=== PATIENT | male | born 1990 | race Two or more races ===

== ENCOUNTER 2021-07-21 01:15 | Emergency (ER) | payer OTHER ==
[~2021-07-21] VITALS: Ht 175.3 cm; Wt 90.7 kg
[2021-07-21 01:59] VITALS: BP 154/82
== END 2021-07-21 02:14 | disposition left against medical advice (07) ==
LOC: EDBD 01:15 → ER 01:16
DX: S00.91XA Abrasion of unspecified part of head, initial encounter (principal); R51.9 Headache, unspecified; Z53.21 Procedure and treatment not carried out due to patient leaving prior to being seen by health care provider; V89.0XXA Person injured in unspecified motor-vehicle accident, nontraffic, initial encounter; Y93.89 Activity, other specified; Y92.89 Other specified places as the place of occurrence of the external cause; Y99.8 Other external cause status